=== PATIENT | female | born 1965 | race African-American/Black ===

== ENCOUNTER 2022-10-18 07:22 | Emergency (ER) | payer MEDICAID, OTHER ==
[~2022-10-18] VITALS: Ht 162.6 cm; Wt 118.0 kg
[2022-10-18 07:43] VITALS: BP 160/93; RESP 18; TEMP 98.8; O2SAT 100
[2022-10-18 07:44] VITALS: PULSE 91
[2022-10-18] MEDS ORDERED: NAPR-681 PO (09:21)
== END 2022-10-18 09:35 | disposition home or self-care (01) ==
LOC: ER 07:22
DX: M25.532 Pain in left wrist (principal)
CPT/HCPCS: 73110; 99283